=== PATIENT | male | born 1960 | race Caucasian/White ===

== ENCOUNTER 2018-05-06 10:31 | Emergency (ER) | payer BC ==
--- OUTSIDE RECORDS SUMMARY | 2018-05-06 10:45 | XMS REPORT | Continuity of Care Document ---
:1960 External Reference #:[id number] Author Name Juan Mancuso M.D. Address [address] [facility] [address] [place] [address] Care Team Providers Name Role Phone HCP given Primary Care Physician Unavailable Payers Type Date Identification Numbers Payment Provider Subscriber Effective: 2017 Policy Number: [id number] Willard Portillo PayID: [id number] [address] [place] [address] Advance Directives Description No Information Available Problems Date Description Provider Status Onset: 01/07/2004 Olivier thyroiditis Juan Mancuso M.D. Active Onset: 09/06/2012 Dysthymia Juan Mancuso M.D. Active Onset: 09/06/2012 Generalized anxiety disorder Juan Mancuso M.D. Active Family History Date Family Member(s) Problem(s) Comments Father due to Age 62 () Father Heart Disease Father Ronaldo Father 02/08/23 Mother due to Unknown At Age 72 () Mother Ana Laura Mother 01/03/28 First Brother Alcoholism First Brother Carlos Second Brother Gale Third Brother Pa Third Brother 01/29/58 Fourth Brother Ronaldo Fourth Brother 11/19/59 Social History Type Date Description Comments Sex Unknown Education Highest level completed, 12th grade Marital Status Smoke-Free Home is not smoke-free Work Status 01/30/2018 Currently Working at [employer] (strarted 2017; previously worked at [employer] for >20yrs), has 2 different positions that offer flexibility and pretty much FT work; as lab attendant 26hrs/wk as well as 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 Tobacco Use Start: Unknown Current Cigarette started at age 16; Smoker 1 1/2 Packs smoking 1-1.5ppd for Daily >30yrs as of 01/30/18 ETOH Use 09/06/2012 Occasionally consumes ~10-12 drinks ~3x/wk alcohol Recreational Drug Use Denies Drug Use Tobacco Use Start: Unknown Patient is a current smoker, smokes every day Smoking Status Reviewed: 12/03/16 Patient is a current smoker, smokes every day Sun Exposure minimum amount of sun exposure Sun Exposure Does not use sunscreen Seat Belt/Car Seat always uses seat belt Currently Active Patient is currently sexually active Contraceptive Methods None # Partners in a Lifetime over 5 Additional Info Sexual preference is women Allergies, Adverse Reactions, Alerts Date Description Reaction Status Severity Comments 01/07/2004 PCN Active Medications Medication Date Status Form Strength Qnty SIG Indications Ordering Provider Omeprazole 04/18/20 Active Capsules 20mg 30caps 1 by K21.0 Jamee, 18 mouth Juan, every day M.D. for acid reflux K22.70 Levothyroxine 07/15/2013 Active Tablets 137mcg 90tabs 1 by E06.3 Jamee, Sodium kenya Martinez, every M.D. morning on an empty stomach Aleve Active Tablets 220mg prn Unknown Omeprazole 02/20/2018 - Hx Capsules 40mg 30caps 1 by R10.11 Jamee, 04/18/2018 DR kenya Martinez, every day M.D. (at least 30min after your thyroid medicatio n) for acid reflux R10.12 K21.9 Nicotine 04/05/2011 - Hx Patches 21mg/24HR 42units apply 1 305.1 Silcoff, 08/29/2012 24HR Juan mercer, change M.D. daily as directed; use for 6 weeks then change to 14mg strength Levoxyl 12/31/2009 - Hx Tablets 125mcg 90tabs 1 po qam 245.2 Silcoff, 07/15/2013 on an Juan, empty M.D. stomach; blood test needed before next refill Commit 08/23/2008 - Hx Lozenges 4mg use as 305.1 Silcoff, 04/02/2011 directed Júnior Martinez Levoxyl 03/25/2008 - Hx Tablets 137mcg 90tabs 1 PO qam 245.2 Silcoff, 12/31/2009 On An Juan, Empty M.D. Stomach; blood test needed!! Oxaprozin 02/13/2007 - Hx Tablets 600mg 60tabs 2 PO qd 724.5 Silcoff, 03/31/2008 prn For Juan Back Pain Krys.DCayetano Levoxyl 06/03/2006 - Hx Tablets 150mcg 90tabs 1 po qd in 245.2 Silcoff, 03/25/2008 am on an Juan, empty M.D. stomach Levoxyl 12/08/2005 - Hx Tablets 175mcg 90tabs 1 po qd in 245.2 Silcoff, 06/03/2006 am on an Juan, empty M.D. stomach Levoxyl 10/04/2004 - Hx Tablets 150mcg 90tabs 1 po qd in 245.2 Silcoff, 12/08/2005 am on an Juan, empty M.D. stomach Afrin Nasal Vale 06/02/2004 - Hx 1units 2 Sprays 460 klepack 03/31/2008 Each Nostril bid. Stop Use After 5 Days. Pseudoephedrine 06/02/2004 - Hx Tablets 120mg 120tabs 1 PO bid 460 klepack 03/31/2008 Saline Nasal 06/02/2004 - Hx 1units Use as 460 klepack Vale 03/31/2008 Directed Work Note 06/02/2004 - Hx Patient 460 klepack 03/31/2008 Seen And Treated Here. Suggest Next 72 Hours Off. Levoxyl 01/07/2004 - Hx Tablets 137mcg 90tabs 1 po qd 245.2 Silcoff, 10/04/2004 Júnior Martinez Levoxyl 11/20/2003 - Hx Tablets 150mcg 90tabs 1 po qd Silcoff, 01/07/2004 Júnior Martinez Levoxyl 04/01/2003 - Hx Tablets 175mcg 90tabs 1 po qd Silcoff, 11/20/2003 Júnior Martinez Influenza, - Hx Injection Silcoff, Unspecified 01/30/2018 Júnior Martinez Immunizations CPT Code Status Date Vaccine Lot # [id number] Given 04/05/2011 Adacel or Boostrix, TDaP [id number] Given 12/03/2003 Td Immunization 80404 Refused 01/30/2018 Shingrix Zoster (Shingles) Vaccine (HZV) Recomb,Subnit,Adjuvanted 73758 Refused 04/05/2011 Pneumococcal Immunization 66598 Refused 04/05/2011 Flu, Split Virus 3Yrs Vital Signs Date Vital Result Comment 04/18/2018 2:58pm BP Systolic 128 mmHg per nurse; 123/72 w/ auto cuff BP Diastolic 82 mmHg per nurse; 123/72 w/ auto cuff BP Systolic Recheck 136 mmHg R arm sitting BP Diastolic Recheck 88 mmHg R arm sitting Height 67.75 inches 5'7.75" with sneakers Weight 181.00 lb with sneakers BMI (Body Mass Index) 27.7 kg/m2 03/06/2018 11:38am BP Systolic 158 mmHg per pt BP Diastolic 95 mmHg per pt 03/04/2018 11:38am BP Systolic 152 mmHg BP Diastolic 103 mmHg 02/20/2018 4:16pm BP Systolic 144 mmHg BP Diastolic 96 mmHg BP Systolic Recheck 140 mmHg R arm sitting BP Diastolic Recheck 92 mmHg R arm sitting Body Temperature 98.3 F Weight 180.00 lb 01/30/2018 3:57pm BP Systolic 138 mmHg BP Diastolic 84 mmHg Height 67.50 inches 5'7.50" Weight 180.00 lb BMI (Body Mass Index) 27.8 kg/m2 12/03/2016 3:51pm BP Systolic 130 mmHg BP Diastolic 80 mmHg Height 67.5 inches 5'7.50" with sneakers Weight 163.00 lb with sneakers BMI (Body Mass Index) 25.1 kg/m2 09/06/2012 10:10am BP Systolic 106 mmHg BP Diastolic 78 mmHg Height 67 inches 5'7" Weight 169.00 lb BMI (Body Mass Index) 26.5 kg/m2 04/05/2011 10:14am BP Systolic 120 mmHg BP Diastolic 84 mmHg Heart Rate 70 /min reg Respiratory Rate 12 /min not laboured Height 67 inches 5'7" Weight 169.00 lb BMI (Body Mass Index) 26.5 kg/m2 Last Menstrual Period 0 08/23/2008 11:06am BP Systolic 118 mmHg BP Diastolic 84 mmHg Height 67.6 inches 5'7.60" Weight 171.00 lb BMI (Body Mass Index) 26.3 kg/m2 Last Menstrual Period 0 04/01/2008 1:16pm BP Systolic 106 mmHg BP Diastolic 82 mmHg Heart Rate 72 /min reg Height 68 inches 5'8" Weight 173.00 lb BMI (Body Mass Index) 26.3 kg/m2 Last Menstrual Period 0 02/13/2007 4:57pm BP Systolic 126 mmHg BP Diastolic 82 mmHg Height 68 inches 5'8" Weight 171.00 lb BMI (Body Mass Index) 26.0 kg/m2 04/27/2005 11:18am BP Systolic 120 mmHg BP Diastolic 78 mmHg Height 68 inches 5'8" Weight 172.00 lb BMI (Body Mass Index) 26.1 kg/m2 Last Menstrual Period 0 06/02/2004 11:49am Body Temperature 100.8 F Height 68 inches 5'8" Weight 170.00 lb BMI (Body Mass Index) 25.8 kg/m2 02/25/2004 9:32am BP Systolic 116 mmHg BP Diastolic 76 mmHg Heart Rate 72 /min reg Height 68 inches 5'8" 01/07/2004 9:25am BP Systolic 138 mmHg BP Diastolic 90 mmHg Height 68 inches 5'8" Weight 171.00 lb BMI (Body Mass Index) 26.0 kg/m2 11/20/2003 9:04am BP Systolic 118 mmHg BP Diastolic 90 mmHg Heart Rate 76 /min reg Weight 171.00 lb Results Test Date Facility Test Result H/L Range Note Laboratory test 04/12/2018 [facility] Clotest SEE RESULT 1, 2 finding [phone] BELOW Laboratory test 04/12/2018 [facility] Surgical SEE RESULT 3, 4 finding [phone] Pathology BELOW CBC Auto Diff 02/22/2018 [facility] White Blood 6.7 10^3/uL N 3.5- 10.8 [phone] Count Red Blood Count 5.09 10^6/uL N 4.00-5.40 Hemoglobin 16.2 g/dL N 14.0-18.0 Hematocrit 47 % N 42-52 Mean Corpuscular Volume 92 fL N 80-94 Mean Corpuscular Hemoglobin 32 pg High 27-31 Mean Corpuscular HGB Conc 35 g/dL N 31-36 Red Cell Distribution Width 13 % N 10.5-15 Platelet Count 143 10^3/uL Low 150-450 Mean Platelet Volume 10.0 um3 N 7.4-10.4 Abs Neutrophils 4.5 10^3/uL N 1.5-7.7 Abs Lymphocytes 1.5 10^3/uL N 1.0-4.8 Abs Monocytes 0.5 10^3/uL N 0-0.8 Abs Eosinophils 0.1 10^3/uL N 0-0.6 Abs Basophils 0 10^3/uL N 0-0.2 Abs Nucleated RBC 0 10^3/uL Granulocyte % 67.5 % N 38-83 Lymphocyte % 22.0 % Low 25-47 Monocyte % 8.0 % High 0-7 Eosinophil % 1.9 % N 0-6 Basophil % 0.6 % N 0-2 Nucleated Red Blood Cells % 0.1 Comp Metabolic Panel 02/22/2018 [facility] Sodium 138 mmol/L N 135- 145 [phone] Potassium 4.6 mmol/L N 3.5-5.0 Chloride 107 mmol/L N 101-111 Co2 Carbon Dioxide 28 mmol/L N 22-32 Anion Gap 3 mmol/L N 2-11 Glucose 103 mg/dL High 70-100 Blood Urea Nitrogen 14 mg/dL N 6-24 Creatinine 0.75 mg/dL N 0.67-1.17 BUN/Creatinine Ratio 18.7 N 8-20 Calcium 8.9 mg/dL N 8.6-10.3 Total Protein 6.1 g/dL Low 6.4-8.9 Albumin 4.0 g/dL N 3.2-5.2 Globulin 2.1 g/dL N 2-4 Albumin/Globulin Ratio 1.9 N 1-3 Total Bilirubin 0.30 mg/dL N 0.2-1.0 Alkaline Phosphatase 79 U/L N 34-104 Alt 19 U/L N 7-52 Ast 13 U/L N 13-39 Egfr Non- 108.1 >60 Egfr 130.8 >60 5 Laboratory test 01/26/2018 [facility] TSH (Thyroid 3.73 mcIU/mL N 0.34-5.60 finding [phone] Stim Horm) Laboratory test 04/11/2017 [facility] TSH (Thyroid 0.34 mcIU/mL N 0.34-5.60 finding [phone] Stim Horm) T3 Free 3.30 pg/mL N 2.5-3.9 Free T4 (Free Thyroxine) 1.23 ng/dL High 0.61-1.12 Laboratory test 01/05/2017 [facility] Vitamin D Total 26.8 ng/mL Low 30-50 finding [phone] 25(Oh) Hepatitis C Antibody Nonreactive N Nonreactive Lipid Profile (Trig/Chol/HDL) 01/05/2017 [facility] Triglycerides 153 mg/dL N 6 [phone] Cholesterol 177 mg/dL N 7 HDL Cholesterol 46.3 mg/dL N 8 LDL Cholesterol 100 mg/dL N 9 Comp Metabolic Panel 01/05/2017 [facility] Sodium 137 mmol/L N 133- 145 [phone] Potassium 4.1 mmol/L N 3.5-5.0 Chloride 105 mmol/L N 101-111 Co2 Carbon Dioxide 26 mmol/L N 22-32 Anion Gap 6 mmol/L N 2-11 Glucose 89 mg/dL N 70-100 Blood Urea Nitrogen 8 mg/dL N 6-24 Creatinine 0.77 mg/dL N 0.67-1.17 BUN/Creatinine Ratio 10.4 N 8-20 Calcium 8.8 mg/dL N 8.6-10.3 Total Protein 6.6 g/dL N 6.4-8.9 Albumin 4.0 g/dL N 3.2-5.2 Globulin 2.6 g/dL N 2-4 Albumin/Globulin Ratio 1.5 N 1-3 Total Bilirubin 0.60 mg/dL N 0.2-1.0 Alkaline Phosphatase 81 U/L N 34-104 Alt 15 U/L N 7-52 Ast 15 U/L N 13-39 Egfr Non- 105.3 N >60 Egfr 135.4 N >60 10 CBC Auto Diff 01/05/2017 [facility] White Blood Count 6.5 10^3/uL N 3.5-10.8 [phone] Red Blood Count 5.40 10^6/uL N 4.0-5.4 Hemoglobin 17.2 g/dL N 14.0-18.0 Hematocrit 51 % N 42-52 Mean Corpuscular Volume 94 fL N 80-94 Mean Corpuscular Hemoglobin 32 pg High 27-31 Mean Corpuscular HGB Conc 34 g/dL N 31-36 Red Cell Distribution Width 13 % N 10.5-15 Platelet Count 138 10^3/uL Low 150-450 Mean Platelet Volume 10 um3 N 7.4-10.4 Abs Neutrophils 5.0 10^3/uL N 1.5-7.7 Abs Lymphocytes 0.9 10^3/uL Low 1.0-4.8 Abs Monocytes 0.4 10^3/uL N 0-0.8 Abs Eosinophils 0.1 10^3/uL N 0-0.6 Abs Basophils 0.2 10^3/uL N 0-0.2 Abs Nucleated RBC 0 10^3/uL N Granulocyte % 75.7 % N 38-83 Lymphocyte % 13.7 % Low 25-47 Monocyte % 6.5 % N 1-9 Eosinophil % 0.8 % N 0-6 Basophil % 3.3 % High 0-2 Nucleated Red Blood Cells % 0.1 N Laboratory test 01/05/2017 [facility] TSH (Thyroid 0.30 mcIU/mL Low 0.34-5.60 finding [phone] Stim Horm) T3 Free 3.30 pg/mL N 2.5-3.9 Free T4 (Free Thyroxine) 1.27 ng/dL High 0.61-1.12 Laboratory test 11/12/2015 [facility] TSH (Thyroid Stim 0.48 ?IU/mL N 0.34-5.60 finding [phone] Horm) Laboratory test 11/08/2014 [facility] TSH (Thyroid Stim 0.53 ?IU/mL N 0.34-5.60 finding [phone] Horm) Laboratory test 10/22/2013 [facility] TSH (Thyroid 0.81 IU/mL 0.34- 5.60 finding [phone] Stimulating Horm) Laboratory test 07/11/2013 [facility] TSH (Thyroid 5.42 IU/mL 0.34- 5.60 finding [phone] Stimulating Horm) Laboratory test 03/02/2012 [facility] TSH (Thyroid 2.39 MIU/ML 0.34- 5.60 finding [phone] Stimulating Horm) Lipid Profile 04/05/2011 [facility] Triglyceride 73 mg/dL 40-200 (Trig/Chol/HDL) [phone] Cholesterol 175 mg/dL Less Than 200 11 High Density Lipoprotein 54 mg/dL 40-60 12 Cholesterol/HDL Ratio 3.24 AVERAGE 1-4.97 Low Density Lipoprotein 106 mg/dL High Less Than 100 13 Laboratory test finding 02/02/2011 [facility] TSH 1.65 MIU/ML 0.34- 5.60 [phone] Laboratory test finding 04/20/2010 [facility] TSH 0.60 MIU/ML 0.34- 5.60 [phone] Laboratory test finding 12/31/2009 [facility] TSH 0.30 MIU/ML Low 0.34-5.60 [phone] Laboratory test finding 12/23/2008 [facility] TSH 0.64 MIU/ML 0.34- 5.60 [phone] Laboratory test finding 06/21/2008 [facility] TSH 1.17 MIU/ML 0.34- 5.60 [phone] Laboratory test finding 03/25/2008 [facility] TSH 0.29 MIU/ML Low 0.34-5.60 [phone] Laboratory test finding 06/19/2007 [facility] TSH 0.39 MIU/ML 0.34- 5.60 [phone] Laboratory test finding 09/09/2006 [facility] TSH 0.78 MIU/ML 0.34- 5.60 [phone] Laboratory test finding 06/03/2006 [facility] TSH 0.12 MIU/ML Low 0.34-5.60 [phone] Laboratory test finding 03/02/2006 [facility] TSH 0.61 MIU/ML 0.34- 5.60 [phone] Laboratory test finding 12/08/2005 [facility] TSH 5.08 MIU/ML 0.34- 5.60 [phone] Laboratory test finding 04/27/2005 [facility] TSH 3.43 MIU/ML 0.34- 5.60 [phone] Laboratory test finding 01/06/2005 [facility] TSH 1.57 [phone] Laboratory test finding 10/02/2004 [facility] TSH 8.14 High [phone] Laboratory test finding 02/20/2004 [facility] TSH 3.33 [phone] Laboratory test finding 12/30/2003 [facility] TSH 0.62 MIU/ML 0.34- 5.60 [phone] [id number] 2 SEE RESULT BELOW Name: JUANITA PORTILLO : [address]: Dion Contreras DO Acct: [id number] Unit: [id number] AGE: 57 Location: [facility] Re04/12/18 SEX: M Status: DEP REF SPEC: [id number] BHUPENDRA: 04/12/[address] [facility] [address]: Dion Contreras DO REQ: [id number] RECD: 04/12/18 STATUS: GITA GOLDMAN DR: Juan Mancuso MD _ SOURCE: [facility]: ORDERED: Clotest COMMENTS: [id number] Procedure Result Reported Site Clotest Final 04/13/18- 0832 ML Clotest Negative * ML - Main Lab . END OF REPORT DEPARTMENT OF PATHOLOGY, [address] [place] [address] Erik Leahy M.D. Director [facility] # [id number] 3 [id number] 4 SEE RESULT BELOW Name: JUANITA PORTILLO : [address]: Dion Contreras DO Acct: [id number] Unit: [id number] AGE: 58 Location: [facility] Re04/12/18 SEX: M Status: DEP REF SPEC: [id number] BHUPENDRA: 04/12/18-[address]: Dion Contreras DO REQ: [id number] RECD: 04/12/18 STATUS: LASHAUN GOLDMAN DR: Juan Mancuso MD _ ORDERED: LEVEL 4/8 COMMENTS: [id number] FINAL DIAGNOSIS 1. Esophagus, 40 cm, biopsy: -- Inflamed gastric Cardia-type mucosa with reactive glandular epithelial changes. -- No goblet cell/intestinal metaplasia or dysplasia identified. -- No squamous component identified. 2. Esophagus, nodule at 39 cm, biopsy: -- Gastric Cardia-type mucosa with goblet cell/intestinal metaplasia. -- No dysplasia identified. -- No squamous component identified. 3. Esophagus, 39 cm, biopsy: -- Inflamed gastric Cardia-type mucosa with focal goblet cell/intestinal metaplasia. -- No dysplasia identified. -- No squamous component identified. 4. Esophagus, 38 cm, biopsy: -- Gastroesophageal transition zone mucosa with extensive goblet cell/ intestinal metaplasia. -- No dysplasia identified. -- No definitive features of active reflux esophagitis in squamous component. 5. Colon, sigmoid, biopsy: -- Hyperplastic polyp. 6. Colon, proximal sigmoid polyps, biopsies: -- Hyperplastic polyps, inflamed (7 fragments). 7. Colon, 18 cm, biopsies: -- Inflamed hyperplastic polyp. 8. Colon, rectum, biopsy: -- Hyperplastic polyp. CONTINUED ON NEXT PAGE DEPARTMENT OF PATHOLOGY, [address] [place] [address] Erik Leahy M.D. Director [facility] # [id number] RUN DATE: 04/17/18 [facility] LAB LIVE PAGE 2 Patient: JUANITA PORTILLO [id number] (Continued) FINAL DIAGNOSIS (Continued) POST-OPERATIVE DIAGNOSIS EGD: esophagus - Peterson?s biopsy, nodule 39 cm, biopsy 40, 39, 38 cm; gastric - LORENA test; duodenum - normal; colonoscopy: complete to terminal ileum; good prep; sigmoid colon polyp 1.8 cm endoloop and hot snare polypectomy; sigmoid colon polyps proximal (4) ; cold 0.5 cm to 1 cm hot and cold snare; rectum cold snare GROSS DESCRIPTION 1. The specimen is received in formalin labeled, Biopsy Peterson's at 40 cm , and consists of two robertson-pink irregular soft tissue fragments measuring 0.5 x 0.1 x 0.1 cm and 0.6 by up to 0.3 x 0.2 cm which are submitted entirely in one cassette. 2. The specimen is received in formalin labeled, Biopsy Nodule at 39 cm, and consists of a 0.3 x 0.2 x 0.2 cm robertson-pink irregular soft tissue fragment which is submitted entirely in one cassette. 3. The specimen is received in formalin labeled, Biopsy Peterson's Mucosa at 39 cm, and consists of two robertson-pink irregular soft tissue fragments measuring 0.2 x 0.1 x 0.1 cm and 0.4 x 0.1 x 0.1 cm which are submitted entirely in one cassette. 4. The specimen is received in formalin labeled, Biopsy Peterson's at 38 cm , and consists of two robertson-white to pink irregular soft tissue fragments measuring 0.2 x 0.2 x 0.1 cm and 0.3 x 0.2 x 0.1 cm which are submitted entirely in one cassette. 5. The specimen is received in formalin labeled, Polyp in Sigmoid Colon, and consists of a 1.1 x 0.9 x 0.8 cm robertson-red lobulated polypoid soft tissue fragment which is inked, serially sectioned and entirely submitted in one cassette. 6. The specimen is received in formalin labeled, Biopsy Proximal Sigmoid Polyps, and consists of a 0.7 x 0.5 by up to 0.2 cm aggregate of robertson-red irregular soft tissue fragments which is submitted entirely in one cassette. 7. The specimen is received in formalin labeled, Polyps at 18 cm, and consists of a 0.8 x 0.3 cm aggregate of robertson-pink irregular to polypoid soft tissue fragments which is submitted entirely in one cassette. 8. The specimen is received in formalin labeled, Polyp in Rectum, and consists of a 0.6 x 0.4 x 0.3 cm robertson-pink polypoid soft tissue fragment which is inked, bisected and submitted entirely in one cassette. CONTINUED ON NEXT PAGE DEPARTMENT OF PATHOLOGY, [address] [place] [address] Erik Leahy M.D. Director [facility] # [id number] RUN DATE: 04/17/18 [facility] LAB LIVE PAGE 3 Patient: JUANITA PORTILLO [id number] (Continued) GROSS DESCRIPTION (Continued) Signed by and Reported on: Erik Leahy MD 1226 END OF REPORT DEPARTMENT OF PATHOLOGY, [address] [place] [address] Erik Leahy M.D. Director [facility] # [id number] 5 Because ethnic data is not always readily available, this report includes an eGFR for both -Americans and non- Americans. The National Kidney Disease Education Program (NKDEP) does not endorse the use of the MDRD equation for patients that are not between the ages of 18 and 70, are , have extremes of body size, muscle mass, or nutritional status, or are non- or non-. According to the National Kidney Foundation, irrespective of diagnosis, the stage of the disease is based on the level of kidney function: Stage Description GFR(mL/min/1.73 m(2)) 1 Kidney damage with normal or decreased GFR 90 2 Kidney damage with mild decrease in GFR 60-89 3 Moderate decrease in GFR 30-59 4 Severe decrease in GFR 15-29 5 Kidney failure <15 (or dialysis) 6 Desirable <150 Borderline high 150-199 High 200-499 Very High >500 7 Desirable <200 Borderline high 200-239 High >239 8 Low <40 Desirable: 40-60 High: >60 9 Desirable: <100 mg/dL Near Optimal: 100-129 mg/dL Borderline High: 130-159 mg/dL High: 160-189 mg/dL Very High: >189 mg/dL 10 Because ethnic data is not always readily available, this report includes an eGFR for both -Americans and non- Americans. The National Kidney Disease Education Program (NKDEP) does not endorse the use of the MDRD equation for patients that are not between the ages of 18 and 70, are , have extremes of body size, muscle mass, or nutritional status, or are non- or non-. According to the National Kidney Foundation, irrespective of diagnosis, the stage of the disease is based on the level of kidney function: Stage Description GFR(mL/min/1.73 m(2)) 1 Kidney damage with normal or decreased GFR 90 2 Kidney damage with mild decrease in GFR 60-89 3 Moderate decrease in GFR 30-59 4 Severe decrease in GFR 15-29 5 Kidney failure <15 (or dialysis) 11 CHOLESTEROL INTERPRETATION: Desirable: Less than 200 MG/DL Borderline-High Risk: 200-239 MG/DL High-Risk: 240 MG/DL and over 12 HDL INTERPRETATION: Undesirable: High Risk: Less than 40 MG/DL Desirable: Low Risk: Greater than 60 MG/DL 13 LDL INTERPRETATION: Low Risk Optimal Level: LDL Less than 100 MG/DL Near or Above Optimal: LDL 100-129 MG/DL Borderline High Risk: LDL 130-159 MG/DL High Risk: LDL 160-189 MG/DL Very High Risk: LDL Greater than 189 MG/DL Procedures Date Code Description Status 04/12/2018 [id number] Colonoscopy Completed Encounters Type Date Location Provider Dx Diagnosis Office Visit 04/18/2018 Main Office Juan Mancuso, Z00.00 Encntr for general 2:30p M.D. 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 quadrant pain R10.12 Left upper quadrant pain K21.9 Gastro-esophageal reflux disease without esophagitis R03.0 Elevated blood-pressure reading, w/o diagnosis of htn Office Visit 01/30/2018 4:00p Main Office Juan Mancuso, E06.3 Autoimmune M.D. thyroiditis Z23 Encounter for immunization Z12.11 Encounter for screening for malignant neoplasm of colon Z12.2 Encntr screen for malignant neoplasm of respiratory organs M25.551 Pain in right hip F17.210 Nicotine dependence, cigarettes, uncomplicated Office Visit 12/03/2016 3:30p Main Office Guevara Riddle, E06.3 Autoimmune D.O. thyroiditis Z12.11 Encounter for screening for malignant neoplasm of colon Z00.00 Encntr for general adult medical exam w/o abnormal findings F17.210 Nicotine dependence, cigarettes, uncomplicated Z71.89 Other specified counseling Office Visit 09/06/2012 10:00a Main Office Juan Mancuso, 245.2 Thyroiditis Chronic M.D. Lymphocytic 300.02 Anxiety Disorder Generalized 300.4 Dysthymic Disorder Office Visit 04/05/2011 9:45a Main Office Juan Mancuso, 245.2 Thyroiditis Chronic M.D. Lymphocytic 305.1 Tobacco Use Disorder V77.91 Screening For Lipoid Disorders V65.49 Counseling Other Spec V70.0 Examination General Medical Routine AT Health Care Facility v06.1 Ahtpznhxme-Urkookc-Sseglsrt Combined (DTaP) v07.2 Prophylactic Immunotherapy Office Visit 08/23/2008 11:00a Main Office Juan Mancuso, 305.1 Tobacco Use M.D. Disorder Office Visit 04/01/2008 1:15p Main Office Juan Mancuso, 245.2 Thyroiditis Chronic M.D. Lymphocytic Office Visit 02/13/2007 4:45p Main Office Juan Mancuso, 724.5 Backache Unspec M.D. 723.1 Cervicalgia Office Visit 04/27/2005 11:15a Main Office Juan Mancuso 245.2 Thyroiditis Chronic M.D. Lymphocytic 724.5 Backache Unspec Office Visit 06/02/2004 11:30a Main Office megan 460 Nasopharyngitis Acute Office Visit 02/25/2004 9:30a Main Office Rikki Mancuso.2 Thyroiditis Chronic Júnior Martinez Lymphocytic Office Visit 01/07/2004 9:30a Main Office Rikki Mancuso.2 Thyroiditis Chronic Júnior Martinez Lymphocytic Office Visit 11/20/2003 9:15a Main Office Silcoff, 245.2 Thyroiditis Chronic Vicky Martinez. Lymphocytic Plan of Treatment 04/18/2018 - Juan Mancuso M.D.Z00.00 Encounter for general adult medical examination without abnoK21.0 Gastro-esophageal reflux disease with esophagitisNew Medication:Omeprazole 20 mg - 1 by mouth every day for acid refluxComments:Given ongoing GERD (now controlled on PPI) and finding of BE, I advised pt that he should be on a PPI indefinitely. Discussed risks of transition from BE to esophageal CA, need for periodic monitoring,need to report disease progression. We touched on fact there are some associations w/ PPIs and ohterhealth issues incl renal insufficiency, but that a causal relationship is unknown, and advised him that there was expert opinion on need for ongoing PPI use in these cases. Will try though to lower hisPPI dose and if maintains good Sx control will continue the lower dose. He will get back to us in a few weeks with an update and request for Rx refill.K22.70 Peterson's esophagus without dysplasiaNew Medication:Omeprazole 20 mg - 1 by mouth every day for acid refluxComments:Counseled re Dx, risk of progression, need for ongoing surveillance. Discussed that ETOH and smokingraised the risk for developing esophageal CA, good reasons to quit!E06.3 Autoimmune [id number] Nicotine dependence, cigarettes, uncomplicatedComments: Encouraged to quit smoking, reviewed the importance of this, offered assistance. He remains unwilling to accept help, will consider using nicotine patches.
[2018-05-06 10:50] VITALS: BP 130/85
--- NOTE | 2018-05-06 11:26 | UC ---
Dental HPI - HPI Summary HPI Summary: 58-year-old female presents with one-week history of left upper dental pain. States over past 2 days pain has progressively worsened and today started noticing some facial swelling. Has a known fractured tooth due to severe decay at site of pain. Does not have a dentist appointment scheduled at this time. Denies fever, chills, trismus, sore throat, dysphagia, or difficulty breathing. - History of Current Complaint Chief Complaint: UCDentalProblem Stated Complaint: DENTAL/ORAL COMPLAINT Time Seen by Provider: 05/06/18 11:18 Hx Obtained From: Patient Pain Intensity: 1 Dental: 1 - Severe dental decay with fracture or tooth. Gingival erythema without induration, fluctuance, or drainage noted. - Allergies/Home Medications Allergies/Adverse Reactions: Allergies Allergy/AdvReac Type Severity Reaction Status Date / Time Penicillins Allergy Unknown Verified 05/06/18 10:46 Reaction Details PMH/Surg Hx/FS Hx/Imm Hx Endocrine History: Hypothyroidism Cardiovascular History: Hypertension GI/ History: Gastroesophageal Reflux - Surgical History Surgical History: None - Family History Known Family History: Positive: Non-Contributory - Social History Occupation: Employed Full-time Lives: With Family Alcohol Use: Weekly Substance Use Type: None Smoking Status (MU): Heavy Every Day Tobacco Smoker Type: Cigarettes Amount Used/How Often: 1 PPD x 40 years Review of Systems All Other Systems Reviewed And Are Negative: Yes Constitutional: Negative: Fever, Chills Eyes: Negative: Drainage, Eye Redness ENT: Positive: Dental Pain, Other - Left maxillary facial swelling. Negative: Sore Throat, Nasal Discharge, Sinus Congestion, Sinus Pain/Tenderness Respiratory: Negative: Shortness Of Breath, Cough Cardiovascular: Negative: Palpitations, Chest Pain Gastrointestinal: Negative: Abdominal Pain, Vomiting, Nausea Is Patient Immunocompromised?: No Physical Exam - Summary Physical Exam Summary: GENERAL APPEARANCE: Well developed, well nourished, alert and cooperative, and appears to be in no acute distress. HEAD: Atraumatic. normocephalic. Mild left maxillary facial swelling noted. EYES: Conjunctiva clear. No discharge. EARS: External auditory canals and tympanic membranes clear, hearing grossly intact. NOSE: No nasal discharge. THROAT: Pharynx normal. No tonsilar inflammation, swelling, exudate, or lesions. See diagram for dental assessment. NECK: Neck supple, non-tender without lymphadenopathy. CARDIAC: Normal S1 and S2. No S3, S4 or murmurs. Rhythm is regular. There is no peripheral edema, cyanosis or pallor. Extremities are warm and well perfused. Capillary refill is less than 2 seconds. LUNGS: Clear to auscultation and percussion without rales, rhonchi, wheezing or diminished breath sounds. Triage Information Reviewed: Yes Vital Signs: Initial Vital Signs Temp 97.1 F 05/06/18 10:47 Pulse 78 05/06/18 10:47 Resp 18 05/06/18 10:47 BP 130/85 05/06/18 10:47 Pulse Ox 99 05/06/18 10:47 Vital Signs Reviewed: Yes Dental Complaint Course/Dx - Course Course Of Treatment: 58-year-old female presents with one-week history of left upper dental pain. States over past 2 days pain has progressively worsened and today started noticing some facial swelling. Has a known fractured tooth due to severe decay at site of pain. Does not have a dentist appointment scheduled at this time. Denies fever, chills, trismus, sore throat, dysphagia, or difficulty breathing. Afebrile. VSS. Exam revealed severe dental decay with fracture of #14 molar and mild maxillary facial swelling. Patient is penicillin allergic therefore will treat with 10 day course of clindamycin. He is to schedule an appointment with his dentist at next available appointment. Warning symptoms reviewed. Verbalizes understanding and agrees with POC. - Differential Dx/Diagnosis Differential Diagnosis/Dx: Dental Abscess, Dental Caries, Gingivitis, Odontogenic Pain, Peridontic Disease Provider Diagnosis: Pain, dental Discharge - Sign-Out/Discharge Documenting (check all that apply): Patient Departure All imaging exams completed and their final reports reviewed: No Studies - Discharge Plan Condition: Stable Disposition: HOME Prescriptions: Clindamycin HCl 300 mg PO TID #30 capsule Naproxen [Naproxen 500 mg tab] 500 mg PO Q12HR PRN #30 tablet PRN Reason: Pain (Dental) Patient Education Materials: Toothache (ED) Referrals: Silcoff,Juan, MD [Primary Care Provider] - Additional Instructions: Start clindamycin 1 tab three times a day for 10 days. Take naproxen 1 tab every 12 hours as needed for pain. Use a salt water rinse after every time you eat and at bedtime to remove any debris. Apply ice to the affected side of your face for 15-20 minutes 3-4 times a day to help with any swelling. It is important that you make an appointment with a dentist at the next available appointment. Seek immediate medical attention if you develop fever greater than 100.5 F, are unable to open your mouth, have difficulty swallowing, difficulty breathing or any worsening of symptoms. - Billing Disposition and Condition Condition: STABLE Disposition: Home
[2018-05-06] MEDS ORDERED: Naproxen TAB* 250 MG PO ONE (11:31)
== END 2018-05-06 11:39 | disposition home or self-care (01) ==
LOC: UCCORT 10:31
DX: K08.89 Other specified disorders of teeth and supporting structures (principal); Z88.0 Allergy status to penicillin; I10 Essential (primary) hypertension; F17.210 Nicotine dependence, cigarettes, uncomplicated
CPT/HCPCS: 99212; A9270-GY; G0463